=== PATIENT | male | born 1955 | race African-American/Black ===

== ENCOUNTER 2017-01-24 05:17 | Inpatient (IN) | payer OTHER ==
[2017-01-05 12:36] LABS: HEMATOCRIT 39.4 % (42.0-52.0); HEMOGLOBIN 12.6 gm/dL (14.0-18.0); MCH 25.7 pg (26.0-34.0); MCV 80.3 fL (80.0-100.0); RBC 4.9 mil/uL (4.50-6.00); RDW 16.8 % (10.5-14.5); WBC 6.9 thou/uL (4.0-11.0)
[2017-01-05 12:37] LABS: URINE BLOOD NEGATIVE (Negative); URINE COLOR YELLOW; URINE GLUCOSE-RANDOM* NEGATIVE (Negative); URINE KETONES TRACE (Negative); URINE LEUKOCYTES-REFLEX NEGATIVE (Negative); URINE PROTEIN (DIPSTICK) 1+ (Negative); URINE UROBILINOGEN 0.2 E.U./dl (0.2-1.0)
[2017-01-05 12:42] LABS: ICTOTEST (BILI CONFIRMATORY) Negative (Negative); URINE BILIRUBIN NEGATIVE (Negative)
[2017-01-05 12:48] LABS: ALBUMIN 3.5 g/dL (3.4-5.0); CALCIUM 9.2 mg/dL (8.5-10.1); CREATININE 0.8 mg/dL (0.7-1.3); POTASSIUM 3.8 mmol/L (3.5-5.1)
[2017-01-05 12:52] LABS: INR 1.1; PROTIME 10.8 Seconds (9.3-11.4)
[2017-01-05 12:53] LABS: CASTS None Seen /LPF (None Seen); CRYSTALS None Seen /LPF (None Seen)
[2017-01-05 12:54] LABS: SQUAMOUS 0-3 Few /LPF (0-3); URINE RBC None Seen /HPF (0-2); URINE WBC-REFLEX 0-5 Rare /HPF (0-5)
[2017-01-24] VITALS (9 sets, daily range): BP systolic 96–153; BP diastolic 54–101
[~2017-01-24] VITALS: Ht 180.3 cm; Wt 104.3 kg
--- NOTE | ~2017-01-24 | D ---
[facility] [place] [address] DISCHARGE SUMMARY Name: NAJMA CRUZ Room #: 416-P [facility] IN M.R.#: [id number] Admission: 01/24/17 Attend Phys: Juan Brownlee MD Discharge: 01/27/17 Date of : 59 Report #: [id number] THIS REPORT FOR: //name// CC: Francis Brownlee DATE OF SERVICE: 01/27/2017 FINAL DIAGNOSES: 1. End-stage degenerative arthritis, left hip, status post childhood slipped capital femoral epiphysis and surgical repair. 2. Acute blood loss anemia. 3. Urinary retention, requiring placement of indwelling Santiago catheter. OPERATION PROCEDURES: Left total hip arthroplasty with removal of previous metal fixation and conversion to a total hip replacement. 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 He underwent surgical repair, but did have significant deformity of both hips and had metal fixation. Ultimately, he has developed degenerative arthritis in both hips. He underwent right total hip arthroplasty in the past with good result. He presents now for left total hip arthroplasty. HOSPITAL COURSE: The patient was admitted and taken to the operating room on 01/24. He underwent left total hip arthroplasty with some difficulty given his chronic deformity and the old metal fixation. A satisfactory total hip revision surgery was performed. He tolerated this generally well. There was a moderate amount of bleeding throughout the procedure and his hemoglobin continued to drift downward over the first few days extending down into the low or to about 7.3. Nevertheless, he remained hemodynamically stable and had no significant symptoms. Blood pressure, pulse and his general sense of wellbeing remained satisfactory. He did have moderate discomfort and required ongoing pain medication, but was able to advance from IV medications to oral medications. He did have difficulty with some urinary retention and ultimately a Santiago catheter was placed. Urology consultation suggested we should probably leave the catheter in for the coming week until he can be more active and decrease his use of narcotic medications. He has made good progress with therapy and is safely ambulatory with a walker and seems ready for discharge. He notes that he is anxious to go home and has assistance at home and prefers discharge on 01/27. DISCHARGE MEDICATIONS: Include lisinopril 1 tablet daily, hydrocodone 10/325 one q.4-6 hours p.r.n. for pain and Xarelto 10 mg daily. [facility] [address] [place] [address] DISCHARGE SUMMARY Name: NAJMA CRUZ Room #: 416-P [facility] IN M.R.#: [id number] Admission: 01/24/17 Attend Phys: Juan Brownlee MD Discharge: 01/27/17 Date of : 59 Report #: [id number] He will continue with home visiting therapy and gradually advancing activity. I have asked him to call me if any problems or questions. We will plan to see him next week for routine followup and then the following week for suture removal. He will follow up with the urologist for assessment of the Santiago catheter and possibly removal in 1 week. <ELECTRONICALLY SIGNED> By: Juan Brownlee MD 01/28/17 [id number] Juan Brownlee MD /nt
--- NOTE | ~2017-01-24 | O ---
[facility] [place] [address] OPERATIVE REPORT Name: NAJMA CRUZ Room #: 416-P [facility] IN M.R.#: [id number] Admission: 01/24/17 Attend Phys: Juan Brownlee MD Discharge: Date of : 59 Report #: [id number] THIS REPORT FOR: //name// CC: Francis Brownlee DATE OF SERVICE: 01/24/2017 PREOPERATIVE DIAGNOSIS: Marked end-stage degenerative arthritis, left hip with old slipped capital femoral epiphysis and retained metal fixation. POSTOPERATIVE DIAGNOSIS: Marked end-stage degenerative arthritis, left hip with old slipped capital femoral epiphysis and retained metal fixation. PROCEDURE: Removal of old hardware fixation of left proximal femur and complex left total hip arthroplasty. SURGEON: Juan Brownlee MD INDICATIONS: This 61-year-old gentleman had adolescent bilateral slipped capital femoral epiphysis with rather significant deformity. He underwent surgical stabilization with plate and screw fixation bilaterally, previously he underwent revision to a right total hip arthroplasty with good result there. Now he has severe end-stage degenerative arthritis of the left hip with marked deformity of the femoral head and acetabulum with very limited range of motion and marked discomfort. We have elected to go ahead with total hip arthroplasty. I have explained that this is a difficult and complex procedure given his severe deformity and the retained metal fixation, which has been there for over 40 years. DESCRIPTION OF PROCEDURE: The patient was taken to the operating room where he was placed under general anesthesia. Prophylactic intravenous antibiotics were administered. He was turned to the right lateral decubitus position. The left hip, thigh and leg were meticulously prepped and draped. Range of motion was assessed and he was noted to have very limited rotation with only about 10-15 degrees of both internal and external rotation and only about 45-50 degrees of hip flexion. A posterior lateral skin incision was made incorporating his old surgical scar. This was carried through scar and fascia to expose the lateral aspect of the proximal femur. The old lateral fixation plate and screws were identified, although with difficulty as they were completely covered with bone and callus. This bony covering was removed using an osteotome with careful dissection to preserve as much bone as possible. Once adequate exposure had been established, the screws were removed, although with significant difficulty as they were very old style [place] head screws with limited purchase with screwdriver and rather marked firm adherence to bone. Nevertheless, with some difficulty each of the screws were removed and the plate was removed without [address] [address] OPERATIVE REPORT Name: NAJMA CRUZ Room #: 416-P [facility] IN .R.#: [id number] Admission: 01/24/17 Attend Phys: Juan Brownlee MD Discharge: Date of : 59 Report #: [id number] damaging the proximal femur in any significant fashion. Once this had been accomplished, exposure along the posterior aspect of the hip joint was established with careful dissection, elevating the capsule and fascia and external rotators from the posterior aspect of the greater trochanter and neck and head. The neck and head were found to be markedly deformed and there was marked hypertrophy of the rim of the acetabulum, a sense of preventing exposure or any significant movement of the hip joint. The hypertrophic bone around the margin of the acetabulum was carefully removed using an osteotome. Even with this the hip could not be dislocated without undue stress. I was fearful that we might actually fracture the femur if we applied any more excessive force. Given this, a femoral neck osteotomy was performed and the femoral head was removed piecemeal from the acetabulum. Once this had been accomplished, the soft tissues were further freed up around the capsule, which would allow adequate exposure of the acetabulum. At this point, the acetabulum was reamed using the Lion and Nephew hip system. The acetabulum was rather deformed making initial reaming difficult. This was gradually advanced to a size 56 mm reamer. This seemed to fit nicely and provided very satisfactory acetabulum for placement of a new cup. The Lion and Nephew press fit noncemented porous backed and fenestrated acetabular component was selected. This was impacted in the acetabulum in alignment with his true acetabulum, placing this in about 45 degrees off of vertical and about 15-20 degrees of anteversion. It seemed to seat quite nicely and appeared to be very secure with its initial impaction in the bone. In addition, 2 cancellous screws were placed through the apex of the shell engaging good periacetabular bone. At this point, a 10-degree elevated holman acetabular liner was then snapped into place, placing the elevated holman at about the 10 o'clock posterior position. It seated well and appeared to be secure. Attention was then directed to the femoral canal, this was opened using a small osteotome and reamers. The reamers were gradually advanced to the size sufficient to accommodate a size 14 femoral stem. Hand broaches were then used to enlarge the canal and the broaches seated quite nicely. A size 14 femoral stem broach seemed to fit well. A trial reduction was performed with this and the hip seemed to be best suited for a -4 neck length with a standard offset neck angle. I attempted to advance the broach farther to see if we could get back to 0 neck length, this did not seem possible and the hip was just too tight to accommodate this. We also tried a lateral offset to give a bit more mechanical advantage to the hip, but this was also too tight to achieve a satisfactory reduction. It seemed to me the size 14 stem with a -4 mm neck length and a 40 mm head was the best option. The trial components were removed. The integrity of the proximal femur was once again assessed and felt to be satisfactory. There was no evidence of fracture. The permanent Lion and Nephew size 14 press-fit stem was then inserted. This was impacted in the canal and seated quite nicely and appeared to be secure. A -4 mm neck length and a 40 [facility] [address] [place] [address] OPERATIVE REPORT Name: NAJMA CRUZ Room #: 416-P [facility] IN .R.#: [id number] Admission: 01/24/17 Attend Phys: Juan Brownlee MD Discharge: Date of : 59 Report #: [id number] mm head size was selected using a cobalt chrome head. These were impacted on to the Schneider taper of the femoral stem and seated nicely and appeared to be secure. The hip was then reduced. Once again alignment, range of motion, stability and leg length were assessed and felt to be satisfactory. The hip seemed to be stable throughout a full arc of motion. The wound was copiously irrigated. Good hemostasis was established. There had, however, been moderate oozing throughout the procedure and total blood loss was approximately 1000 mL. He remained hemodynamically stable throughout the procedure. The piriformis and some of the posterior short rotators were repaired back to bone using #1 Tevdek. The capsule was too atrophied and deformed to establish any sort of a functional capsule repair. Nevertheless, the hip seemed to be stable. A single Hemovac was left in the wound exiting through a separate stab incision. The fascia and vastus lateralis muscle layer were closed with multiple #1 Vicryl sutures. The more superficial layers were closed with 0 Monocryl. The skin was closed with skin sara. A sterile dressing was applied. The patient was awakened and returned to recovery room in satisfactory condition. <ELECTRONICALLY SIGNED> By: Juan Brownlee MD 01/25/17 [id number] Juan Brownlee MD /nt
[~2017-01-24 05:17] MED LIST: HYDROCHLOROTHIA25 M2 PO; IBUPROFEN200 M1 PO; LISINOPRIL20 MG PO; NAPROSYN500 MG PO; NORVASC5 MG PO
[2017-01-24 08:30] LABS: DIRECT BILIRUBIN 0.1 mg/dL (<0.1-0.3); TOTAL BILIRUBIN 0.5 mg/dL (<0.1-1.0); TOTAL PROTEIN 6.6 g/dL (6.4-8.2)
[2017-01-24 11:25] LABS: ABSOLUTE NEUTROPHILS 8.8 thou/uL (1.4-8.2); BASOPHILS 0.3 % (0.0-2.0); EOSINOPHILS 0.6 % (0.0-3.0); HEMATOCRIT 34.6 % (42.0-52.0); LYMPHOCYTES 13.2 % (24.0-44.0); MCH 26.1 pg (26.0-34.0); MCHC 31.7 g/dL (28.0-37.0); MCV 82.4 fL (80.0-100.0); MONOCYTES 5.8 % (1.0-8.0); PLATELET COUNT 196 thou/uL (150-400); POLYS 80.1 % (36.0-66.0); RDW 16.2 % (10.5-14.5)
[2017-01-24 11:26] LABS: MANUAL DIFF NO
[2017-01-24 11:39] LABS: ALBUMIN 2.7 g/dL (3.4-5.0); CALCIUM 8.3 mg/dL (8.5-10.1); CREATININE 0.8 mg/dL (0.7-1.3); POTASSIUM 3.8 mmol/L (3.5-5.1); TOTAL BILIRUBIN 0.4 mg/dL (<0.1-1.0)
[2017-01-25 03:20] VITALS: BP 130/79
[2017-01-25 06:35] LABS: HEMATOCRIT 28.7 % (42.0-52.0); HEMOGLOBIN 9.3 gm/dL (14.0-18.0); MCH 26.1 pg (26.0-34.0); MCHC 32.4 g/dL (28.0-37.0); MCV 80.5 fL (80.0-100.0); RBC 3.56 mil/uL (4.50-6.00); RDW 15.8 % (10.5-14.5); WBC 6.9 thou/uL (4.0-11.0)
[2017-01-25 06:58] LABS: CALCIUM 8.2 mg/dL (8.5-10.1); CREATININE 0.9 mg/dL (0.7-1.3); MAGNESIUM 1.7 mg/dL (1.8-2.4); POTASSIUM 4.1 mmol/L (3.5-5.1)
[2017-01-25 08:00] VITALS: BP 144/93
[2017-01-25 21:13] VITALS: BP 98/69
[2017-01-26 04:00] VITALS: BP 132/69
[2017-01-26 06:33] LABS: HEMATOCRIT 24.9 % (42.0-52.0); HEMOGLOBIN 8.1 gm/dL (14.0-18.0); MCH 26.5 pg (26.0-34.0); MCHC 32.7 g/dL (28.0-37.0); MCV 81.2 fL (80.0-100.0); RBC 3.07 mil/uL (4.50-6.00); RDW 15.6 % (10.5-14.5); WBC 8.6 thou/uL (4.0-11.0)
[2017-01-26 08:00] VITALS: BP 105/63
[2017-01-26 16:01] VITALS: BP 108/65
[2017-01-26 20:06] VITALS: BP 118/67
[2017-01-27 04:01] VITALS: BP 116/63
[2017-01-27 05:51] LABS: ABSOLUTE NEUTROPHILS 6.7 thou/uL (1.4-8.2); BASOPHILS 0.3 % (0.0-2.0); EOSINOPHILS 1.3 % (0.0-3.0); HEMATOCRIT 22.7 % (42.0-52.0); HEMOGLOBIN 7.3 gm/dL (14.0-18.0); LYMPHOCYTES 14.2 % (24.0-44.0); MCHC 32.2 g/dL (28.0-37.0); MCV 80.9 fL (80.0-100.0); MONOCYTES 8.7 % (1.0-8.0); PLATELET COUNT 177 thou/uL (150-400); POLYS 75.5 % (36.0-66.0); RBC 2.81 mil/uL (4.50-6.00); RDW 16.1 % (10.5-14.5); WBC 8.9 thou/uL (4.0-11.0)
[2017-01-27 05:52] LABS: CALCIUM 8.2 mg/dL (8.5-10.1); CREATININE 0.8 mg/dL (0.7-1.3); MANUAL DIFF NO; POTASSIUM 3.7 mmol/L (3.5-5.1)
[2017-01-27 08:00] VITALS: BP 115/52
[2017-01-27 14:26] VITALS: BP 115/52
[2017-01-27] MEDS ORDERED: PROTONIX40 M1 PO (14:33)
[2017-01-27] MEDS ORDERED: IRON325 PO (14:33)
[2017-01-27] MEDS ORDERED: XARELTO10 MG PO ×2 (14:33→14:48)
[2017-01-27] MEDS ORDERED: ZANAFLEX4 MG PO (14:33)
[2017-01-27] MEDS ORDERED: COLACE100 MG PO (14:33)
[2017-01-27] MEDS ORDERED: FLOMAX0.4 MG PO (14:33)
[2017-01-27] MEDS ORDERED: MIRALAX17 GM PO (14:34)
[2017-01-27 14:44] VITALS: BP 115/52
== END 2017-01-27 18:30 | disposition home health service (06) | DRG 466 ==
LOC: 4N 05:17 → TBA 05:17 → PRE 05:31 → 4N 12:21 → PRE 13:03 → ENTRNSPT 01-27 18:17 → 4N 01-27 18:30
PROVIDERS: Nurse Practitioner; Orthopaedic Surgery
PROC: 0SRB0JA Replacement of Left Hip Joint with Synthetic Substitute, Uncemented, Open Approach (ICD-10-PCS; principal; 2017-01-24)
PROC: 0SPS0JZ Removal of Synthetic Substitute from Left Hip Joint, Femoral Surface, Open Approach (ICD-10-PCS; 2017-01-24)
DX: M16.12 Unilateral primary osteoarthritis, left hip (principal); E43 Unspecified severe protein-calorie malnutrition; D62 Acute posthemorrhagic anemia; R33.9 Retention of urine, unspecified; Z96.641 Presence of right artificial hip joint; I10 Essential (primary) hypertension; M21.952 Unspecified acquired deformity of left thigh; Z90.49 Acquired absence of other specified parts of digestive tract; Z68.32 Body mass index [BMI] 32.0-32.9, adult
CPT/HCPCS: 10790; 50010; 50101; 50382; 50414; 50505; 51412; 51771; 53000; 53367; 56521; 56525; 56527; 62110; 62900; 70005

== ENCOUNTER 2018-10-20 19:43 | Emergency (ER) | payer OTHER ==
[~2018-10-20] VITALS: Ht 180.3 cm; Wt 79.4 kg
[~2018-10-20 19:43] MED LIST changes: +COLACE100 MG PO; +FLOMAX0.4 MG PO; +IBUPROFEN 200200 M1 PO; +IRON325 PO; +MIRALAX17 GM PO; +OXYCODONE HCL5 MG PO; +PROTONIX40 M1 PO; +XARELTO10 MG PO; +ZANAFLEX4 MG PO
[2018-10-20] MEDS ORDERED: TYLENOL325 MG PO (21:19)
[2018-10-20] MEDS ORDERED: FLEXERIL PO (21:19)
[2018-10-20] MEDS ORDERED: LIDODERM1 EACH TRANSDERM (21:20)
[2018-10-20] MEDS ORDERED: MILK OF MA400 MG/5 M PO ×2 (21:20→21:21)
[2018-10-20] MEDS ORDERED: MORPHINE SULFAT15 M3 PO (21:23)
[2018-10-20] MEDS ORDERED: FLOMAX0.4 MG PO (21:23)
[2018-10-20] MEDS ORDERED: SENNA8.6 MG PO (21:24)
[2018-10-20] MEDS ORDERED: BISACODYL10 MG RECTAL (21:24)
[2018-10-20] MEDS ORDERED: PERCOCET 10-321 EACH PO (21:25)
[2018-10-20] MEDS ORDERED: DURAGESIC1 EAC2 TOP (21:28)
[2018-10-20] MEDS ORDERED: SODIUM CHLORIDE1 GM PO (21:29)
[2018-10-20] MEDS ORDERED: BIOFREEZE118 ML TOP (21:29)
[2018-10-20] MEDS ORDERED: MIRALAX17 GM PO (21:29)
[2018-10-20 23:33] VITALS: BP 130/85
== END 2018-10-20 23:45 | disposition home or self-care (01) ==
LOC: ER 19:43
DX: S30.0XXA Contusion of lower back and pelvis, initial encounter (principal); I10 Essential (primary) hypertension; Z90.49 Acquired absence of other specified parts of digestive tract; Z85.46 Personal history of malignant neoplasm of prostate; Z87.891 Personal history of nicotine dependence; W18.39XA Other fall on same level, initial encounter; Y93.89 Activity, other specified; Y92.89 Other specified places as the place of occurrence of the external cause; Y99.8 Other external cause status